=== PATIENT | female | born 1990 | race Caucasian/White ===

== ENCOUNTER 2023-09-26 21:54 | Inpatient (IN) | payer OTHER ==
[2023-09-27 00:39] LABS: Amphetamine Screen,Urine Not Detected (NotDetected); Barbiturate Screen,Urine Not Detected (NotDetected); Benzodiazepines Screen,Urine Not Detected (NotDetected); Cocaine Screen,Urine Not Detected (NotDetected); Methadone Screen, Urine Not Detected (NotDetected); Opiate Screen,Urine Not Detected (NotDetected); Oxycodone Screen, Urine Not Detected (NotDetected); Phencyclidine Screen,Urine Not Detected (NotDetected); Tricyclic Antidepressant,Urine Not Detected (NotDetected); Urn Cannabinoid Scrn Detected (NotDetected)
--- NOTE | 2023-09-27 10:04 | ED ---
General Adult HPI - General Chief complaint: Psychiatric Symptoms Stated complaint: Mental Health Time Seen by Provider: 09/26/23 23:05 Source: patient Mode of arrival: ambulatory - Related Data Allergies Allergy/AdvReac Type Severity Reaction Status Date / Time Penicillins Allergy Rash/Hives Verified 09/27/23 10:03 sertraline [From Zoloft] Allergy Rash/Hives Verified 09/27/23 10:03 vortioxetine Allergy Rash/Hives Verified 09/27/23 10:03 [From Trintellix] Review of Systems ROS Statement: Those systems with pertinent positive or pertinent negative responses have been documented in the HPI. ROS Other: All systems not noted in ROS Statement are negative. Past Medical History Additional Past Medical History / Comment(s): PCOS Past Surgical History: Section Additional Past Surgical History / Comment(s): wound debridement with wound vac after in 2019 Past Psychological History: Anxiety, Bipolar, Depression Smoking Status: Vaper Past Alcohol Use History: None Reported Past Drug Use History: Marijuana Course Vital Signs 09/26/23 21:59 Temperature 98.1 F Pulse Rate 73 Respiratory 20 Rate Blood Pressure 128/78 O2 Sat by Pulse 98 Oximetry Medical Decision Making - Medical Decision Making Patient was boarding in our emergency department pending EPS evaluation. Was medically cleared by previous provider. Presented for impulsive planning and suicidal ideations from psychiatrist. I spoke with the EPS time who evaluated the patient. After discussion with psychiatry, patient will voluntarily admit herself to inpatient psychiatry. Diagnosis/symptom? @ -Suicidal ideations Acute, or Chronic, or Acute on Chronic? @ -Acute Uncomplicated (without systemic symptoms) or Complicated (systemic symptoms)? @ -Complicated Side effects of treatment? @ -None Exacerbation, Progression, or Severe Exacerbation] @ -No Poses a threat to life or bodily function? @ -Yes - Lab Data Lab Results 09/27/23 09/27/23 Range/Units 00:10 00:10 Urine HCG, Qual Not Detected (Not Detectd) Urine Opiates Screen Not Detected (NotDetected) Ur Oxycodone Screen Not Detected (NotDetected) Urine Methadone Screen Not Detected (NotDetected) Ur Barbiturates Screen Not Detected (NotDetected) U Tricyclic Antidepress Not Detected (NotDetected) Ur Phencyclidine Scrn Not Detected (NotDetected) Ur Amphetamines Screen Not Detected (NotDetected) U Methamphetamines Scrn Not Detected (NotDetected) U Benzodiazepines Scrn Not Detected (NotDetected) Urine Cocaine Screen Not Detected (NotDetected) U Marijuana (THC) Screen Detected H (NotDetected) Disposition Clinical Impression: Suicidal ideation Disposition: TRANSFER TO PSYCH HOSP/UNIT Condition: Stable Referrals: Aldo Ford DO [Primary Care Provider] - 1-2 days Time of Disposition: 10:00
[2023-09-27] MEDS ORDERED: MAGNESIUM HYDROXIDE 2,400 MG/30 ML CUP PO PRN (12:25)
[2023-09-27] MEDS ORDERED: MAG HYDROX/AL HYDROX/SIMETH 355 ML BOTTLE PO PRN (12:25)
[2023-09-27] MEDS ORDERED: haloperidoL 5 MG TAB PO PRN (12:25)
[2023-09-27] MEDS ORDERED: ACETAMINOPHEN TAB 325 MG TAB PO PRN (12:25)
[2023-09-27] MEDS ORDERED: IBUPROFEN 600 MG TAB PO PRN (12:25)
[2023-09-27] MEDS ORDERED: LORazepam 2 MG/ML INJ IM PRN (12:25)
[2023-09-27] MEDS ORDERED: HALOPERIDOL LACTATE 5 MG/ML 1 ML VIAL IM PRN (12:25)
[2023-09-27] MEDS: buPROPion XL 300 MG TAB.ER.24H PO SCH (12:28)
[2023-09-27] MEDS: busPIRone HCl 10 MG TAB PO SCH ×2 (12:31→16:12)
[2023-09-27] MEDS: PANTOPRAZOLE 40 MG TABLET PO SCH (12:32)
[2023-09-27] MEDS: NICOTINE 14MG/24HR PATCH TRANSDERM SCH (14:36)
[2023-09-27] MEDS: MULTIVITAMINS, THERA 1 EACH TAB PO SCH (14:36)
[2023-09-27] MEDS: LORazepam 1 MG TAB PO PRN (15:25)
[2023-09-27] MEDS: hydrOXYzine pamoate 25 MG CAP PO SCH (20:49)
[2023-09-28] MEDS: lamoTRIgine 100 MG TAB PO SCH (08:34)
[2023-09-28] MEDS: buPROPion XL 300 MG TAB.ER.24H PO SCH (09:49)
[2023-09-28 10:12] LABS: Basophils % (A) 1 %; Eosinophils # (A) 0.2 k/uL (0-0.7); Eosinophils % (A) 2 %; HCT 39.8 % (34.0-46.0); HGB 13.6 gm/dL (11.4-16.0); Lymphocytes # (A) 2.4 k/uL (1.0-4.8); Lymphocytes % (A) 28 %; MCH 29.9 pg (25.0-35.0); MCHC 34.3 g/dL (31.0-37.0); MCV 87.2 fL (80.0-100.0); Monocytes # (A) 0.4 k/uL (0-1.0); Monocytes % (A) 5 %; Neutrophils # (A) 5.2 k/uL (1.3-7.7); Neutrophils % (A) 62 %; Platelet Count 306 k/uL (150-450); RBC 4.57 m/uL (3.80-5.40); RDW 13.6 % (11.5-15.5); WBC 8.3 k/uL (3.8-10.6)
[2023-09-28 10:13] LABS: ALT 13 U/L (4-34); AST 20 U/L (14-36); African American GFR (CKD) >90 (>60 ml/min/1.73 sqM); Albumin 4.5 g/dL (3.5-5.0); Alkaline Phosphatase 50 U/L (38-126); Anion Gap 7 mmol/L; Blood Urea Nitrogen 7 mg/dL (7-17); Calcium 9.8 mg/dL (8.4-10.2); Carbon Dioxide 29 mmol/L (22-30); Chloride 104 mmol/L (98-107); Glucose 94 mg/dL (74-99); Non-African American GFR(CKD) 84 (>60 ml/min/1.73 sqM); Potassium 4.1 mmol/L (3.5-5.1); Sodium 140 mmol/L (137-145); Total Bilirubin 0.7 mg/dL (0.2-1.3); Total Protein 7.1 g/dL (6.3-8.2)
--- NOTE | 2023-09-28 11:25 | P.PN ---
Progress Note - Text Progress Note Date: 09/28/23 Attempted to see the patient.Patient did not recognize Dr. Ford, reported she follows-up with an older female doctor. Confusion over who the PCP is. Staff to research/confirm PCP. Dr. Ford will check with his office. Patient not seen at this time.
[2023-09-28 16:37] LABS: Chol/HDL Ratio 6.11 Ratio; LDL Cholesterol,Calculated 174.7 mg/dL (0.0-131.0)
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
[2023-09-28] MEDS: traZODone HCL 50 MG TAB PO SCH (21:17)
[2023-09-29] MEDS: ONDANSETRON ODT 4 MG TAB PO PRN (10:41)
--- NOTE | 2023-09-29 17:24 | P.HPIM ---
History of Present Illness H&P Date: 09/29/23 Chief Complaint: Depression, anxiety, impulsive suicidal ideations This is a 33-year-old female with past medical history significant for anxiety, bipolar, depression, vapes, marijuana use, and multiple other medical issues presented to the ER with depression, anxiety, impulsive self harmful thoughts, suicidal ideation, voluntarily admitted herself to inpatient mental health unit. Reports she used to smoke weed every day, all day long, recently quit 2 weeks ago Monday and felt like she was going through withdrawals chills ,tremors, sweats, increased anxiety, panic attacks. Toxicology detected marijuana. denies chest pain, palpitations or shortness of breath. Denies lightheadedness, dizziness or focal deficits. Nausea earlier this morning, relieved with ordered Zofran ODT. Viral studies negative. Review of Systems ROS Statement: Those systems with pertinent positive or pertinent negative responses have been documented in the HPI. ROS Other: All systems not noted in ROS Statement are negative. Past Medical History Past Medical History: No Reported History Additional Past Medical History / Comment(s): PCOS History of Any Multi-Drug Resistant Organisms: None Reported Past Surgical History: Section Additional Past Surgical History / Comment(s): wound debridement with wound vac after in 2019 Past Anesthesia/Blood Transfusion Reactions: No Reported Reaction Past Psychological History: Anxiety, Bipolar, Depression Smoking Status: Vaper Past Alcohol Use History: None Reported Past Drug Use History: Marijuana Medications and Allergies Home Medications Medication Instructions Recorded Confirmed Type Esomeprazole Magnesium 20 mg PO DAILY 09/27/23 09/27/23 History Multivit/Iron Sulf/Folic Acid 1 tab PO DAILY 09/27/23 09/27/23 History [Multivitamin with Iron] buPROPion XL [Wellbutrin XL] 300 mg PO DAILY 09/27/23 09/27/23 History busPIRone HCl [Buspar] 10 mg PO BID@0900,2100 09/27/23 09/27/23 History busPIRone HCl [Buspar] 20 mg PO DAILY@1600 09/27/23 09/27/23 History hydrOXYzine pamoate [Vistaril] 25 mg PO HS 09/27/23 09/27/23 History lamoTRIgine [LaMICtal] 200 mg PO DAILY 09/27/23 09/27/23 History Allergies Allergy/AdvReac Type Severity Reaction Status Date / Time Penicillins Allergy Rash/Hives Verified 09/27/23 14:30 sertraline [From Zoloft] Allergy Rash/Hives Verified 09/27/23 14:30 vortioxetine Allergy Rash/Hives Verified 09/27/23 14:30 [From Trintellix] Physical Exam Vitals: Vital Signs Temp Pulse Resp BP Pulse Ox 09/29/23 05:59 97.9 F 68 17 92/60 96 PHYSICAL EXAM: VITAL SIGNS: [As above] GENERAL: Alert and oriented x 3, sitting up in chair, no acute distress HEENT: Normocephalic, atraumatic ,conjunctivae normal. eyes normal. NECK: No JVD. No thyroid enlargement. No LNs,MMM. CARDIOVASCULAR: S1, S2 regular. No murmur RESPIRATION: Unlabored, equal air entry, clear to auscultation. ABDOMEN: Soft, nontender . No guarding. no masses palpable. Positive bowel sounds LEGS: No edema. no swelling. NERVOUS SYSTEM: Cranial N 2-12 grossly normal. Strength and sensation grossly intact Skin: Warm and dry Results CBC & Chem 7: 09/28/23 09:45 09/28/23 09:45 Thrombosis Risk Factor Assmnt - Choose All That Apply Any of the Below Risk Factors Present?: No Other Risk Factors: No Other congenital or acquired thrombophilia - If yes, enter type in comment: No Thrombosis Risk Factor Assessment Level: Very Low Risk Assessment and Plan Assessment: Major depressive disorder with impulsivity Bipolar Anxiety vaper Daily marijuana use, quit 2 weeks ago Plan: Continue on current medication resume ,monitoring and symptomatic treatment. Antiemetics. Smoking cessation reinforced. Please do not hesitate to call us with any questions or concerns. The impression and plan of care has been dictated as directed. : I performed a history and examination of this patient, discussed the same with the dictator. I agree with the dictator's note ,documented as a scribe. Any additional findings or plans will be noted.
[2023-09-30 08:07] VITALS: RESP 16
--- NOTE | 2023-09-30 10:06 | P.PN ---
Subjective Progress Note Date: 09/30/23 Principal diagnosis: mood disorder NOS subjective the patient feels that her current medicines are working she has been on this Lamictal for quite a while 200 mg and feels that it does help with the depression although she denies any hypomanic highs in the past. Otherwise she s ays she is sleeping well feels that her anxiety is better but that she plans to go to counseling after discharge to improve control of her anxiety. Objective pleasant reasonable self-care came readily to talk in the office alert oriented no signs of psychosis can strength are normal . Assessment patient seems to be benefiting from medicine stable Plan no change Objective - Vital Signs Vital signs: Vital Signs Temp 98.0 F 09/30/23 08:06 Pulse 98 09/30/23 08:06 Resp 16 09/30/23 08:06 BP 127/83 09/30/23 08:06 Pulse Ox 96 09/30/23 05:32 FiO2 - Labs CBC & Chem 7: 09/28/23 09:45 09/28/23 09:45
[2023-09-30 19:40] LABS: Appearance,Urine Clear (Clear); Bacteria,Urine Rare /hpf; Bilirubin,Urine Negative (Negative); Blood,Urine Trace (Negative); Color,Urine Colorless; Glucose,Urine (UA) Negative (Negative); Ketones,Urine Negative (Negative); Leukocyte Esterase,Urine Negative (Negative); Nitrite,Urine Negative (Negative); Protein,Urine Negative (Negative); RBC,Urine <1 /hpf (0-5); Specific Gravity,Urine 1.003 (1.001-1.035); Squamous Epithelial Cell,Urine <1 /hpf (0-4); Urobilinogen,Urine <2.0 mg/dL (<2.0); WBC,Urine 1 /hpf (0-5)
--- NOTE | 2023-10-01 09:47 | P.PN ---
Subjective Progress Note Date: 10/01/23 Principal diagnosis: mood disorder NOS subjective the patient feels that her current medicines are working she has been on this Lamictal for quite a while 200 mg and feels that it does help with the depression although she denies any hypomanic highs in the past. Otherwise she s ays she is sleeping well feels that her anxiety is better but that she plans to go to counseling after discharge to improve control of her anxiety.for her discharge she is going to try to get into a program run by [facility]. Her mother is going to call early tomorrow morning to see if they have openings. She is herself a person of [employer] so I think that would be useful. Objective: pleasant, reasonable self-care, came readily to talk in the office alert oriented no signs of psychosis can strength are normal .good eye contact quick response times without being pressured gait and station are normal logical follows reasoning well denies any psychosis no suicidal or homicidal thoughts Assessment: patient seems to be benefiting from medicine and isstable Plan no change Objective - Vital Signs Vital signs: Vital Signs Temp 98.0 F 09/30/23 08:06 Pulse 74 10/01/23 08:39 Resp 16 09/30/23 08:06 BP 105/66 10/01/23 08:39 Pulse Ox 96 09/30/23 05:32 FiO2 - Labs CBC & Chem 7: 09/28/23 09:45 09/28/23 09:45 Labs: Abnormal Lab Results - Last 24 Hours (Table) 09/30/23 Range/Units 19:18 Urine Blood Trace H (Negative) Urine Bacteria Rare H (None) /hpf
[2023-10-02 06:52] VITALS: BP 114/75; PULSE 92; TEMP 98.2
== END 2023-10-02 16:14 | disposition home or self-care (01) | DRG 885 ==
LOC: EC 21:54 → 3MHU 09-27 12:19
PROVIDERS: ADMIT Psychiatry & Neurology Psychiatry; ATTEND Psychiatry & Neurology Psychiatry
DX: F31.9 Bipolar disorder, unspecified (principal); R45.851 Suicidal ideations; Z79.899 Other long term (current) drug therapy; E28.2 Polycystic ovarian syndrome; K21.9 Gastro-esophageal reflux disease without esophagitis; F41.9 Anxiety disorder, unspecified; Z11.52 Encounter for screening for COVID-19; Z28.21 Immunization not carried out because of patient refusal; Z91.410 Personal history of adult physical and sexual abuse; Z71.6 Tobacco abuse counseling; F17.290 Nicotine dependence, other tobacco product, uncomplicated; Z88.0 Allergy status to penicillin; Z88.8 Allergy status to other drugs, medicaments and biological substances
CPT/HCPCS: 80053; 80061; 80306; 81001; 81025; 82075; 83036; 84443; 85025; 87635; 99285